=== PATIENT | male | born 1985 | race Caucasian/White ===

== ENCOUNTER 2018-09-05 21:06 | Emergency (ER) | payer BC ==
[~2018-09-05] VITALS: Ht 175.3 cm; Wt 109.0 kg
[~2018-09-05 21:06] MED LIST: AMOX1TAB64 PO; DOXY100T PO; PRED10TA PO; TIOT18CA INH
[2018-09-05 21:14] VITALS: BP 130/78
[2018-09-05] MEDS ORDERED: ALBUTEROL/IPRATROPIUM 2.5MG/0.5MG, 3 ML NPPB ONE (21:30)
--- NOTE | 2018-09-05 21:48 | NUR ---
PT PRESNTED TO ED STATING "I CANT BREATHE." PT STATED HE WAS OUT OF TOWN TODAY AND THE DUST WAS BLOWING AROUND AND NOW HE IS COUGHING UP YELLOW SPUTUM AND CAN'T BREATH. PT PLACED IN ROOM AND PLACED ON PULSE OXIMETR. PT GIVEN OXYGEN AT 2 LITERS NC. ASSESSMENT COMPLETED AND AWAITING MD.
[2018-09-05 21:49] LABS: BASOPHILS # (AUTO) 0.06 x10^3/uL (0-0.1); BASOPHILS % (AUTO) 0 % (0-1); EOSINOPHILS % (AUTO) 5 % (1-7); LYMPHOCYTES # (AUTO) 2.53 x10^3/uL (1-3.4); LYMPHOCYTES % (AUTO) 17 % (22-44); MD NO; MEAN CORPUSCULAR HEMOGLOBIN 30.6 pg (27.5-34.5); MEAN CORPUSCULAR HGB CONC 33.2 g/dL (33.2-36.2); MEAN CORPUSCULAR VOLUME 92.3 fL (81-97); MONOCYTES # (AUTO) 0.82 x10^3/uL (0.2-0.8); MONOCYTES % (AUTO) 6 % (2-9); NEUTROPHILS # (AUTO) 10.44 x10^3/uL (1.8-6.8); NEUTROPHILS % (AUTO) 72 % (42-75); PLATELET COUNT 255 x10^3/uL (130-400); RED CELL DISTRIBUTION WIDTH 12.9 % (9.4-14.8)
[2018-09-05] MEDS ORDERED: ALBUTEROL/IPRATROPIUM 2.5MG/0.5MG, 3 ML ONE (21:50)
[2018-09-05 21:57] LABS: ANION GAP 6 mmol/L (5-15); CALCIUM 9.1 mg/dL (8.5-10.1); CHLORIDE 107 mmol/L (98-107); CREATININE 1.08 mg/dL (0.7-1.3)
--- NOTE | 2018-09-05 22:12 | NUR ---
PT GETTING RESPIRATORY TREATMENT
--- NOTE | 2018-09-05 22:54 | NUR ---
PT. AMBULATED AROUND HALF THE DEPARTMENT AND MAINTAINED O2 SAT AT 92% DURING AMBULATION. UPON RETURN BACK TO ROOM CONTINUOUS PULSE OX REPLACED AND PT. O2 SAT 94%. FINDINGS REPORTED TO DR. RIDLEY.
--- NOTE | 2018-09-05 23:12 | NUR ---
PT. AWARE OF PLAN FOR D/C. AWAITING PAPERS. REPORT FROM LUCI GARG.
== END 2018-09-05 23:24 | disposition home or self-care (01) ==
LOC: ED 22:50
DX: J20.9 Acute bronchitis, unspecified (principal)
CPT/HCPCS: 36415; 71045; 80048; 85025; 94640; 99284; J7620

== ENCOUNTER 2019-01-24 19:02 | Emergency (ER) | payer BC ==
[~2019-01-24] VITALS: Ht 175.3 cm; Wt 116.9 kg
[2019-01-24 19:13] VITALS: BP 164/85
== END 2019-01-24 20:22 | disposition home or self-care (01) ==
LOC: ED 20:16
DX: J45.909 Unspecified asthma, uncomplicated (principal)
CPT/HCPCS: 71046; 99283

== ENCOUNTER 2019-02-22 21:16 | Emergency (ER) | payer BC ==
[~2019-02-22] VITALS: Ht 175.3 cm; Wt 116.0 kg
[2019-02-22 21:21] VITALS: BP 152/89
[2019-02-22] MEDS ORDERED: methylPREDNISolone SOD SUCC 125 MG/2 ML IVPush STA (21:26)
[2019-02-22] MEDS ORDERED: SODIUM CHLORIDE FLUSH 10ML SYR IVF ONE (21:30)
[2019-02-22] MEDS ORDERED: MAGNESIUM SULFATE PMX 2GM/50ML 50 ML IV ONE (21:30)
[2019-02-22] MEDS ORDERED: methylPREDNISolone SOD SUCC 125 MG/2 ML ONE (21:44)
[2019-02-22] MEDS ORDERED: MAGNESIUM SULFATE PMX 2GM/50ML 50 ML ONE (21:44)
[2019-02-22] MEDS ORDERED: ALBUTEROL/IPRATROPIUM 2.5MG/0.5MG, 3 ML ONE (22:02)
[2019-02-22] MEDS: ALBUTEROL 0.5%, 20ML NPPB SCH ×2 (22:06→23:05)
[2019-02-22] MEDS: IPRATROPIUM 0.5 MG/2.5 ML INHA NPPB SCH ×2 (22:06→23:05)
[2019-02-22] MEDS ORDERED: ALBUTEROL/IPRATROPIUM 2.5MG/0.5MG, 3 ML NPPB ONE (23:00)
== END 2019-02-22 23:51 ==
LOC: ED 22:34
DX: J45.41 Moderate persistent asthma with (acute) exacerbation (principal)
CPT/HCPCS: 71046; 93005; 94640; 96365; 99284; J3475; J7620; J7644